=== PATIENT | female | born 1945 | race Caucasian/White ===

== ENCOUNTER 2017-12-29 16:40 | Emergency (ER) | payer MEDICARE ==
[~2017-12-29] VITALS: Ht 167.6 cm; Wt 68.0 kg
[2017-12-29] MEDS ORDERED: LIPITOR20 MG PO (16:53)
[2017-12-29] MEDS ORDERED: COZAAR25 MG PO (16:53)
[2017-12-29] MEDS ORDERED: PREDNISONE20 MG PO (18:38)
[2017-12-29] MEDS ORDERED: ZITHROMAX250 MG PO (18:38)
== END 2017-12-29 18:46 | disposition home or self-care (01) ==
LOC: ED 16:40
DX: J20.9 Acute bronchitis, unspecified (principal); E78.5 Hyperlipidemia, unspecified; I10 Essential (primary) hypertension; Z87.891 Personal history of nicotine dependence; Z88.2 Allergy status to sulfonamides; Z88.8 Allergy status to other drugs, medicaments and biological substances; Z79.899 Other long term (current) drug therapy
CPT/HCPCS: 71046; 94640; 99285; J7512